=== PATIENT | female | born 1990 | race Caucasian/White ===

== ENCOUNTER 2022-04-21 00:51 | Emergency (ER) | payer BC ==
[2022-04-21 01:02] VITALS: BP 148/78; PULSE 149; RESP 16; TEMP 100; BMI 21.9
[2022-04-21] MEDS ORDERED: ACETAMINOPHEN 325 MG TABLET (FP) PO ONE (01:15)
[2022-04-21] MEDS ORDERED: ALPRAZolam 0.25 MG TABLET ONE (01:16)
[2022-04-21] MEDS ORDERED: ALPRAZolam 0.25 MG TABLET PO ONE (01:16)
[2022-04-21] MEDS ORDERED: ACETAMINOPHEN 325 MG TABLET (FP) ONE (01:16)
== END 2022-04-21 01:35 | disposition home or self-care (01) ==
LOC: FER 00:51
DX: B34.9 Viral infection, unspecified (principal)
CPT/HCPCS: 0241U-QW; 99283-25

== ENCOUNTER 2023-10-07 18:04 | Emergency (ER) | payer BC, OTHER ==
[2023-10-07 18:29] LABS: HEMATOCRIT 37.9 % (32.4-45.2); HEMOGLOBIN 13.2 G/dL (10.7-15.3); MCH 31.5 pg (25.7-33.7); MCHC 34.9 g/dl (32.0-36.0); MEAN CELL VOLUME 90.3 fl (80-96); MEAN PLT VOLUME 8.6 fl (7.5-11.1); PLATELET COUNT 191.6 10^3/uL (134-434); RDW 13.3 % (11.6-15.6); WHITE BLOOD COUNT 11.2 10^3/uL (4.0-10.8)
[2023-10-07 18:34] VITALS: BP 115/66; PULSE 86; RESP 18; BMI 21.7
[2023-10-07 18:45] LABS: PLATELET ESTIMATE ADEQUATE
[2023-10-07 18:46] LABS: ALBUMIN 4.3 g/dl (3.4-5.0); BILIRUBIN,TOTAL 0.3 mg/dl (0.2-1); CALCIUM 9.2 mg/dl (8.5-10.1); CREATININE 0.6 mg/dl (0.6-1.3); POTASSIUM 3.7 mmol/L (3.5-5.1); TOT PROT 6.5 g/dl (6.4-8.2)
[2023-10-07 21:14] VITALS: TEMP 98.6
[2023-10-07] MEDS: RHO(D) IMMUNE GLOBULIN 1,500 UNIT DISP.SYRIN IM ONE (21:36)
== END 2023-10-07 21:43 | disposition home or self-care (01) ==
LOC: FER 18:04
PROC: 3E023GC Introduction of Other Therapeutic Substance into Muscle, Percutaneous Approach (ICD-10-PCS; principal; 2023-10-07)
DX: O20.9 Hemorrhage in early pregnancy, unspecified (principal); O26.891 Other specified pregnancy related conditions, first trimester; R10.30 Lower abdominal pain, unspecified; O21.9 Vomiting of pregnancy, unspecified; O99.611 Diseases of the digestive system complicating pregnancy, first trimester; K59.00 Constipation, unspecified; Z3A.08 8 weeks gestation of pregnancy
CPT/HCPCS: 36415; 80053; 81003; 84702; 85027; 86850; 86900; 86901; 87086; 96372; 99284-25; J2790